=== PATIENT | male | born 1970 | race Caucasian/White ===

== ENCOUNTER 2016-06-08 00:48 | Emergency (ER) | payer MEDICAID, MEDICARE, OTHER ==
[~2016-06-08] VITALS: Ht 172.7 cm; Wt 68.0 kg
[2016-06-08 00:50] VITALS: BP 123/82; PULSE 97; RESP 18; TEMP 97.6; O2SAT 97
--- NOTE | 2016-06-08 01:19 | PD ---
HPI Chief Complaint: Numbness/Tingling Time Seen by Provider: 01:09 Travel History International Travel<30 days: No Contact w/Intl Traveler<30days: No Traveled to known affect area: No History of Present Illness HPI 46-year-old male complains of toe pain. Patient states that he has numbness sensation on the left foot for the past year. Patient started having cramping of the left foot and burning pain to the toes tonight. Patient denies any direct injury to the left foot. Patient denies any fever chills. Patient denies any history of diabetes. PFSH Past Medical History COPD: Yes Past Surgical History Appendectomy: Yes Social History Alcohol Use: No Tobacco Use: Yes (1ppd) Substance Use: No Allergies-Medications (Allergen,Severity, Reaction): Coded Allergies: No Known Allergies (Unverified , 06/08/16) Reported Meds & Prescriptions Reported Meds & Active Scripts Active No Active Prescriptions or Reported Medications Review of Systems General / Constitutional: No: Fever Eyes: No: Visual changes HENT: No: Headaches Cardiovascular: No: Chest Pain or Discomfort Respiratory: No: Shortness of Breath Gastrointestinal: No: Abdominal Pain Genitourinary: No: Dysuria Musculoskeletal: Positive: Pain Skin: No Rash Neurologic: No: Weakness Psychiatric: No: Depression Endocrine: No: Polydipsia Hematologic/Lymphatic: No: Easy Bruising Physical Exam Narrative GENERAL: Well-nourished, well-developed patient. SKIN: Focused skin assessment warm/dry. HEAD: Normocephalic. EYES: No scleral icterus. No injection or drainage. NECK: Supple, trachea midline. No JVD or lymphadenopathy. CARDIOVASCULAR: Regular rate and rhythm without murmurs, gallops, or rubs. RESPIRATORY: Breath sounds equal bilaterally. No accessory muscle use. GASTROINTESTINAL: Abdomen soft, non-tender, nondistended. MUSCULOSKELETAL: No cyanosis, or edema. BACK: Nontender without obvious deformity. No CVA tenderness. Examination of the left foot shows patient has mild redness around the toenails of the toes. Mild tenderness on palpation. No discharge. No induration. Full range of motion of the toes. Good DP pulses. Good capillary refill. Data Data Last Documented VS Vital Signs Date Time Temp Pulse Resp B/P Pulse Ox O2 Delivery O2 Flow Rate FiO2 06/08/16 00:50 97.6 97 18 123/82 97 Room Air Orders Foot, Complete ([id number]) (06/08/16 01:15) MDM Medical Decision Making Medical Screen Exam Complete: Yes Emergency Medical Condition: Yes Interpretation(s) 1:47 AM. Differential Diagnosis Differential diagnosis including neuralgia, neuropathy, cellulitis, paronychia, sprain, fracture, dislocation. Narrative Course 46-year-old male with pain around the toes of the left foot. Patient has numbness sensation of the left foot for the past year. Diagnosis Primary Impression: Neuralgia Patient Instructions: General Instructions Additional Instructions: Mobic as needed for pain. Follow-up with personal physician. Return if worse. Med/Other Pt SpecificInfo: Prescription(s) given Scripts Meloxicam (Mobic)15 Mg Tab15 Mg PO DAILY #20 TAB Prov:Chance Stanley MD 06/08/16 Disposition: 01 DISCHARGE HOME Condition: Stable Chance Stanley MD Jun 08, 2016 01:19
--- NOTE | 2016-06-08 01:45 | RADRPT ---
EXAM DATE/TIME: 06/08/2016 01:20 [facility] COMPARISON: No previous studies available for comparison. INDICATIONS : Left foot pain. MEDICAL HISTORY : None. SURGICAL HISTORY : None. ENCOUNTER: Initial ACUITY: 1 day PAIN SCORE: 4/10 LOCATION: Left foot, 4th digit. FINDINGS: Three view examination of the left foot demonstrates no soft tissue swelling, dislocation, or fractur e. The tarsal bones appear intact. The interphalangeal and metatarsophalangeal joints are intact. The calcaneus is intact. Bony mineralization is normal. CONCLUSION: Unremarkable examination of the left foot. Sammy Ruff Jr., MD on June 08, 2016 at 1:43 Board Certified Radiologist. This report was verified electronically.
[2016-06-08] MEDS ORDERED: MOBI15TA PO (02:03)
== END 2016-06-08 02:31 | disposition home or self-care (01) ==
LOC: NEPC 00:48
DX: M79.2 Neuralgia and neuritis, unspecified (principal); J44.9 Chronic obstructive pulmonary disease, unspecified; F17.200 Nicotine dependence, unspecified, uncomplicated
CPT/HCPCS: 73630; 99283